=== PATIENT | male | born 1975 | race Caucasian/White ===

== ENCOUNTER 2019-05-25 16:20 | Emergency (ER) | payer BC ==
[2019-05-25 16:26] VITALS: BMI 38.3
--- NOTE | 2019-05-25 16:27 | PDOC ---
Rapid Medical Evaluation Chief Complaint: Chest Pain Time Seen by Provider: 05/25/19 16:26 Medical Evaluation: Allergies Allergy/AdvReac Type Severity Reaction Status Date / Time No Known Allergies Allergy Verified 02/22/16 10:53 Vital Signs Temp Pulse Resp BP Pulse Ox 98.5 F 96 H 16 147/93 97 05/25/19 16:24 05/25/19 16:24 05/25/19 16:24 05/25/19 16:24 05/25/19 16:24 05/25/19 16:26 I have performed a brief in-person evaluation of this patient. The patient presents with a chief complaint of: chest/back pain Pertinent physical exam findings:stable and in NAD, non-focal I have ordered the following:labs, ekg The patient will proceed to the ED for further evaluation.
[2019-05-25 17:15] LABS: BASO % 0.6 % (0-2.0); EOS % 1.7 % (0-4.5); HEMATOCRIT 45.9 % (35.4-49); HEMOGLOBIN 15.4 GM/dL (11.7-16.9); LYMPH % 26.8 % (8-40); MCH 28.7 pg (25.7-33.7); MCHC 33.5 g/dl (32.0-35.9); MEAN CELL VOLUME 85.8 fl (80-96); MEAN PLT VOLUME 7.7 fl (7.5-11.1); MONO % 6.3 % (3.8-10.2); NEUT % 64.6 % (42.8-82.8); PLATELET COUNT 258 K/MM3 (134-434); RBC 5.36 M/mm3 (4.00-5.60); RDW 13.6 % (11.9-15.9); WHITE BLOOD COUNT 11.5 K/mm3 (4.0-10.0)
[2019-05-25] MEDS ORDERED: KETOROLAC TROMETHAMINE 30 MG/1 ML VIAL IVPUSH ONE (17:25)
[2019-05-25] MEDS ORDERED: METHOCARBAMOL 500 MG TABLET PO ONE (17:25)
[2019-05-25] MEDS ORDERED: METHOCARBAMOL 500 MG TABLET ONE (17:28)
[2019-05-25] MEDS ORDERED: KETOROLAC TROMETHAMINE 30 MG/1 ML VIAL ONE (17:28)
--- NOTE | 2019-05-25 17:34 | PDOC ---
History of Present Illness - General Chief Complaint: Chest Pain Stated Complaint: CHEST PAIN Time Seen by Provider: 05/25/19 16:26 - History of Present Illness Initial Comments: 05/25/19 18:05 43yo M hx HTN, HLD, DM, smoking, obesity and vertigo presents from home c/o intermittent back and chest pain x3 days s/p heavy lifting. Pt was lifting a heavy refrigerator on Thursday and felt a twinge in his thoracic back that resolved. Then on thursday the back twinge returned and worsened and radiated around his left side to his anterior chest wall. Pt states it feels exactly like when he pulled a back muscle years ago. 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 Pain is more bothersome than painful, pressure type, intermittent, better when stretching or pressing back against villarreal or objects, better after shower, better after tylenol. Pt took toradol and robaxin here and feels much better, just a little pressure left. Denies fever, chills, fatigue, headache, dizziness , numbness/tingling, weakness, vision changes, shortness of breath, cough, palpitations, leg swelling, abdominal pain, blood in stool, diarrhea, constipation, nausea, vomiting, dysuria, hematuria, flank pain, saddle anesthesia, urinary or bowel incontinence, hx DVT/PE, calf tenderness, hemoptysis, trauma, recent surgery, recent travel, hormone or testosterone use, malignancy, prior [place], prior echo or stress test. Endorses FHx of early CVD ( mother heart attack at 42yo). Pt came in today because he was at arson investigator Dr Francis's office to pickling drum operator his aunt and pt told him about his symptoms and Dr Francis told him to come to the ED for evaluation. PCP - Amol James Delivery Room Clerk - Abimael Francis Past History - Past Medical History Allergies/Adverse Reactions: Allergies Allergy/AdvReac Type Severity Reaction Status Date / Time No Known Allergies Allergy Verified 05/25/19 16:27 Home Medications: Ambulatory Orders Losartan/Hydrochlorothiazide [Losartan-Hctz 100-25 mg Tab] 1 each PO DAILY 02/04 Meclizine HCl 25 mg PO PRN PRN 02/05/16 Metformin HCl [Glucophage] 1,000 mg PO BID 02/05/16 Pioglitazone HCl [Actos] 30 mg PO DAILY 02/05/16 Simvastatin 40 mg PO HS 02/05/16 COPD: No Diabetes: Yes HTN: Yes Hypercholesterolemia: Yes Other medical history: VERTIGO - Surgical History Orthopedic Surgery: Yes (knee - torn miniscus - left) - Immunization History Td Vaccination: Yes Immunization Up to Date: No - Suicide/Smoking/Psychosocial Hx Smoking Status: Yes Smoking History: Current every day smoker Years of Tobacco Use: 10 Have you smoked in the past 12 months: Yes Number of Cigarettes Smoked Daily: 20 Information on smoking cessation initiated: No 'Breaking Loose' booklet given: 02/05/16 Hx Alcohol Use: Yes (OCCASIONALLY) Drug/Substance Use Hx: No Substance Use Type: None Hx Substance Use Treatment: No Review of Systems - Review of Systems Comments:: 05/25/19 18:20 Constitutional: Negative for chills, fever, fatigue. HENT: Negative for sore throat, rhinorrhea, congestion. Eyes: Negative for visual disturbance. Respiratory: Negative for shortness of breath, cough, and wheezing. Cardiovascular: Positive for chest pain. Negative for palpitations, and leg swelling. Gastrointestinal: Negative for abdominal pain, blood in stool, constipation, diarrhea, nausea, and vomiting. Genitourinary: Negative for dysuria, flank pain, and hematuria. Musculoskeletal: Positive for back pain. Negative for myalgias and neck pain. Skin: Negative for rash. Neurological: Negative for light-headedness, dizziness, syncope, weakness, numbness and headaches. Psychiatric/Behavioral: Negative for behavioral problems and confusion. *Physical Exam - Vital Signs Last Vital Signs Temp Pulse Resp BP Pulse Ox 98.5 F 96 H 16 147/93 98 05/25/19 16:24 05/25/19 16:24 05/25/19 16:24 05/25/19 16:24 05/25/19 17:22 - Physical Exam Comments: 05/25/19 18:20 Gen: Alert, NAD, comfortable-appearing, obese HEENT: PERRL, EOMI, MMM, NCAT. No conjunctival pallor. Sclera are non-icteric. CV: No TTP. Regular rate and rhythm. No murmurs, rubs, or gallops. PULM: No resp distress. CTAB, no wheezes, rales, or rhonchi. ABD: soft, NT/ND, no rebound tenderness or guarding, no CVA tenderness. BACK: No TTP of c/t/l-spine. No step-offs or deformities. MSK: No bony deformities. 2+ pulses in all extremities. NEURO: AAOx3. PERRL. No gross CN deficits. Strength and sensation grossly intact throughout. EXTREMITIES: No cyanosis. No clubbing. No edema. No calf tenderness. PSYCH: Normal mood and thought pattern. SKIN: Warm and dry. Normal capillary refill. No rashes. No jaundice. Heart Score/ECG Review - ECG Impressions Comment:: 05/25/19 18:21 NSR, 85bpm, normal axis, no TWIs, no ST elevations or depressions ED Treatment Course - LABORATORY CBC & Chemistry Diagram: 05/25/19 16:49 05/25/19 16:49 Medical Decision Making - Medical Decision Making 05/25/19 17:58 43yo M hx HTN, HLD, DM, smoking, obesity and vertigo presents from home c/o intermittent back pain radiating to anterior chest wall x3 days s/p heavy lifting that pt states feels similar to pulled muscle in past. Hemodynamically stable, afebrile, neurologically intact, no TTP of chest or back, pain almost completely resolved s/p toradol and robaxin. Most likely musculoskeletal due to onset after heavy lifting, consistency of sx with prior muscle pull, and improvement of pain with stretching, anti-inflammatory med, and muscle relaxant. However, must consider and r/o more emergent etiologies. Back pain thoracic location, no TTP of c/t/l-spine, no saddle anesthesia or numbness/ tingling, no incontinence, atraumatic, afebrile - no s/s concerning for spinal fx, herniated disc, spinal abscess, or cauda equina - no further testing indicated. Chest pain anterior chest wall, not associated with nausea, numbness , diaphoresis, or SOB; no signs of ischemia on EKG, trop neg; low concern for ACS, HEART score 2 (due to RFs) - r/o ACS/[place] with troponin x2 and have pt follow -up tomorrow with arson investigator for further evaluation. Low concern for pulmonary etiology due to nonpleuritic nature of CP, lack of cough or SOB, and lungs CTAB, but r/o PNA, COPD exacerbation, and PTX with CXR and labs. Very low concern for PE due to lack of RFs, SOB, or tachycardia, Wells 0, Perc negative - no further testing indicated. Lack of tearing nature of chest/back pain, lack of hemodynamic instability, pulses equal bilaterally, and improvement with robaxin and toradol makes dissection of very low concern - no further testing indicated. Also consider infectious etiologies, anemia, or metabolic derangements - r/o with CMP and CBC. -Cardiac monitoring -EKG -CBC, CMP, Cardiac profile/trop x2 -CXR -Toradol and Robaxin given -Consult Dr Francis -Dispo: likely d/c home w/close cardiology f/u pending w/u 05/25/19 18:21 EKG 1629 reviewed: NSR, 85bpm, normal axis, no TWIs, no ST elevations or depressions Labs reviewed. Of note, WBC 11.5, gluc 192, CK 324, trop <0.02, CK-MB 3.2, CKI 0.9. Signed out to Dr Sharpe. *DC/Admit/Observation/Transfer Diagnosis at time of Disposition: Atypical chest pain - Discharge Dispostion Disposition: HOME Condition at time of disposition: Improved Decision to Admit order: No - Referrals Referrals: Amol James MD [Primary Care Provider] - Abimael Francis MD [Staff Physician] - - Patient Instructions Printed Discharge Instructions: DI for Atypical Chest Pain, DI for Thoracic Back Pain Additional Instructions: You have been seen in the Emergency Department for chest and back pain. Your EKG , chest X-ray, and labs, including Troponin (a heart enzyme), show no signs concerning for an emergent condition such as a heart attack or pneumonia at this time. Your pain was relieved by an anti-inflammatory medication and a muscle relaxant, so your pain is most likely a muscle strain. However, you have many risk factors for a heart condition and need further evaluation of your heart. Follow-up with your Delivery Room Clerk (heart doctor) Dr. Francis tomorrow. Also follow-up with your primary care doctor within 1 week. We did note an abnormality on your chest X-ray in the right lung which is unchanged from the prior X-ray. You said you are aware of it and have had it worked up in the past , but make sure you check in with your primary care doctor and let them know to make sure it doesn't need any further evaluation. Return to the ED immediately if you experience chest pain, difficulty breathing , dizziness, passing out, numbness or tingling, vomiting, or any other new or worsening symptom. - Post Discharge Activity
--- NOTE | 2019-05-25 17:36 | PDOC ---
Documentation entered by Nahun White SCRIBE, acting as scribe for Elizabeth Sharpe DO. Elizabeth Sharpe DO: This documentation has been prepared by the Christopher armas Xhesika, SCRIBE, under my direction and personally reviewed by me in its entirety. I confirm that the documentation accurately reflects all work, treatment, procedures, and medical decision making performed by me. Attending Attestation - Resident Resident Name: AbdelrahmanpoonamRosy - ED Attending Attestation I have performed the following: I have examined & evaluated the patient, The case was reviewed & discussed with the resident, I agree w/resident's findings & plan, Exceptions are as noted - HPI HPI: 05/25/19 17:45 The patient is a 43 year old male with a significant PMH of Anemia, HTN, DM, and HLD who presents to the emergency department for 3 days of back pain and chest wall pain. The patient states he lifted a heavy refrigerator on Thursday and felt a twitch in his back. Patient notes on Thursday he felt his back pain radiate to his chest wall that feels like a pulled muscle. Patient states he has been doing back presses against the wall/door for relief of symptoms, however, symptoms have not subsided. Today when he went to Dr. Licona office to lease picker his aunt, told him about his symptoms and was advised to come to the ED. The patient denies shortness of breath, headache and dizziness. Denies fever, chills, cough, nausea, vomiting, diarrhea and constipation. Denies dysuria, frequency, urgency and hematuria. Allergies: NKDA Social History: Current Everyday smoker PCP: Dr. Francis - Physicial Exam PE: 05/25/19 17:45 GENERAL: Awake, alert, and fully oriented, in no acute distress. (+) obese HEAD: No signs of trauma EYES: PERRLA, EOMI, sclera anicteric, conjunctiva clear ENT: Auricles normal inspection, hearing grossly normal, nares patent, oropharynx clear without exudates. Moist mucosa NECK: Normal ROM, supple, no lymphadenopathy, JVD, or masses LUNGS: Breath sounds equal, clear to auscultation bilaterally. No wheezes, and no crackles HEART: Regular rate and rhythm, normal S1 and S2, no murmurs, rubs or gallops CHEST WALL: (+) Anterior chest wall tenderness. ABDOMEN: Soft, nontender, normoactive bowel sounds. No guarding, no rebound. No masses BACK: (+) reproducible point tenderness to L c-spine and L paraspinal muscle T4- 5. (+) Tenderness to palpation around rib 5 and 6. EXTREMITIES: Normal range of motion, no edema. No clubbing or cyanosis. No cords, erythema, or tenderness NEUROLOGICAL: Cranial nerves II through XII grossly intact. Normal speech, normal gait SKIN: Warm, Dry, normal turgor, no rashes or lesions noted. - Medical Decision Making 05/25/19 17:31 I, Dr. Elizabeth Sharpe, DO, attest that this document has been prepared under my direction and personally reviewed by me in its entirety. I further attest, that it accurately reflects all work, treatment, procedures and medical decision -making performed by me. a/p: 43yo male with hx of smoking, htn, hld, smoking, obesity with back pain that radiates around to front -pain in back after lifting heavy refridgerator on thursday, pain radiates around to the front and feels similar to a pulled muscle he had in the past when playing softball -picking up his aunt at Dr. Francis office today and told him about the pain who sent him in for further eval -point tenderness to L paraspinal muscle in back around T4-5 and rib ttp around rib 5 and 6 and anterior chest wall pain -labs sent from [facility] are pending -nonacute ekg -will monitor on tele, however given symptoms low suspicion for acs -will peform [address] francis -will give muscle relaxer and toradol for pain -pt ambulatory in the ED -pain worse with upper back movement and better at rest -no assoc nausea, sob, pleuritic cp, diaphoresis 05/25/19 18:23 pain resolved 05/25/19 18:23 trop neg 05/25/19 19:05 cxr shows poss fibrosis vs atelectasis in RLL - unchanged from prior resident discussed xray findings with the patient reviewed note from Dr. Francis if 2nd trop neg stable for dc to home and follow up with him as outpt 05/25/19 19:42 pt states he knows about the abnl cxr findings 05/25/19 20:09 repeat trop neg stable for dc to home and follow up with dr. francis as outpt *DC/Admit/Observation/Transfer Diagnosis at time of Disposition: Atypical chest pain - Discharge Dispostion Disposition: HOME Condition at time of disposition: Improved Decision to Admit order: No - Prescriptions Prescriptions: Methocarbamol [Robaxin -] 500 mg PO TID PRN #10 tablet PRN Reason: Muscle Spasms - Referrals Referrals: Amol James MD [Primary Care Provider] - Abimael Francis MD [Staff Physician] - - Patient Instructions Printed Discharge Instructions: DI for Atypical Chest Pain, DI for Thoracic Back Pain Additional Instructions: You have been seen in the Emergency Department for chest and back pain. Your EKG , chest X-ray, and labs, including Troponin (a heart enzyme), show no signs concerning for an emergent condition such as a heart attack or pneumonia at this time. Your pain was relieved by an anti-inflammatory medication and a muscle relaxant, so your pain is most likely a muscle strain. However, you have many risk factors for a heart condition and need further evaluation of your heart. Follow-up with your [facility] (heart doctor) Dr. Francis tomorrow. Also follow-up with your primary care doctor within 1 week. We did note an abnormality on your chest X-ray in the right lung which is unchanged from the prior X-ray. You said you are aware of it and have had it worked up in the past , but make sure you check in with your primary care doctor and let them know to make sure it doesn't need any further evaluation. Return to the ED immediately if you experience chest pain, difficulty breathing , dizziness, passing out, numbness or tingling, vomiting, or any other new or worsening symptom. - Post Discharge Activity Heart Score/ECG Review - ECG Intrepretation Comment:: 05/25/19 17:36 sinus at 85, nl axis, nl interval, no acute st/t wave findings
[2019-05-25 17:42] LABS: ALBUMIN 3.9 g/dl (3.4-5.0); ALK PHOS 79 U/L (45-117); ANION GAP 13 MMOL/L (8-16); BILIRUBIN,TOTAL 0.5 mg/dL (0.2-1); BLOOD UREA NITROGEN 14.2 mg/dL (7-18); CALCIUM 9.4 mg/dL (8.5-10.1); CHLORIDE 99 mmol/L (98-107); CO2 28 mmol/L (21-32); GLUCOSE,RANDOM 192 mg/dL (74-106); POTASSIUM 3.8 mmol/L (3.5-5.1); SGOT/AST 20 U/L (15-37); SGPT/ALT 37 U/L (13-61); SODIUM 140 mmol/L (136-145); TOT PROT 7.3 g/dl (6.4-8.2)
[2019-05-25 17:44] LABS: INR 1.03 (0.83-1.09); PROTHROMBIN TIME (PATIENT) 12.1 SEC (9.7-13.0)
[2019-05-25 17:46] LABS: ACTIVATED PTT 36.5 SECONDS (25.2-36.5)
--- NOTE | 2019-05-25 18:44 | CON.CARD ---
Consult Consult Specialty:: cardiology Reason for Consultation:: chest pain; multiple CAD risks - History of Present Illness Chief Complaint: Pt A&OX3; he remarked several times to his aunt, while in the office, that he has been having chest discomfort "for a long time", though worse for the past few days whle lifting heavy/bulky objects at work. History of Present Illness: 43 yr old white man with PMHx DM, HTN, hyperlipidemia, long-term dicgarette smoker, obesity, was picking up his aunt at our office when he complained of left anterior wall chest discomfort (sharp, intense, at times pressure-like; associated with back pain; may last seconds to several minutes) that has been occurring off and on for a few days; it is moderate in severity. 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 +familiy hx: father with CHF, AF. PCP: Dr. James - History Source History Provided By: Patient, Family Member, Medical Record Limitations to Obtaining History: No Limitations - Past Medical History Cardio/Vascular: Yes: HTN, Hyperlipdemia Pulmonary: Yes: Sleep Apnea (to rule out), Other (long-term cigarettes) - Alcohol/Substance Use Hx Alcohol Use: Yes (OCCASIONALLY) - Smoking History Smoking history: Current every day smoker Have you smoked in the past 12 months: Yes Aproximately how many cigarettes per day: 20 - Social History [facility] of : [facility] Home Medications - Allergies Allergies/Adverse Reactions: Allergies Allergy/AdvReac Type Severity Reaction Status Date / Time No Known Allergies Allergy Verified 05/25/19 16:27 - Home Medications Home Medications: Ambulatory Orders Losartan/Hydrochlorothiazide [Losartan-Hctz 100-25 mg Tab] 1 each PO DAILY 02/04 Meclizine HCl 25 mg PO PRN PRN 02/05/16 Metformin HCl [Glucophage] 1,000 mg PO BID 02/05/16 Pioglitazone HCl [Actos] 30 mg PO DAILY 02/05/16 Simvastatin 40 mg PO HS 02/05/16 Family Disease History - Family Disease History Family Disease History: Diabetes: Father (diastolic CHF; COPD; AF), Heart Disease: Father - Risk Factors Known Risk Factors: Yes: Age, Diabetes Mellitus, Family History, Gender, Hypercholesterolemia, Hypertension, Smoking, Other (obesity) Vital Signs: Vital Signs Temperature 98.5 F 05/25/19 16:24 Pulse Rate 69 05/25/19 18:35 Respiratory Rate 18 05/25/19 18:35 Blood Pressure 130/75 05/25/19 18:35 O2 Sat by Pulse Oximetry (%) 97 05/25/19 18:35 Constitutional: Yes: Anxious, Obese Eyes: Yes: WNL HENT: Yes: WNL Neck: Yes: WNL Respiratory: Yes: WNL Gastrointestinal: Yes: Abdomen, Obese Renal/: No: Anuria Cardiovascular: Yes: Gallop (S4) JVD: No Carotid Bruit: No Heart Sounds: Yes: S1, S2, S4 Murmur: Yes: Systolic Murmur, Grade 1 Musculoskeletal: Yes: WNL Extremities: Yes: WNL Edema: Yes Edema: LLE: Trace, RLE: Trace Peripheral Pulses WNL: Yes Integumentary: Yes: WNL Neurological: Yes: WNL Psychiatric: Yes: Alert, Oriented - Other Data Labs, Other Data: CBC, BMP 05/25/19 16:49 05/25/19 16:49 INR, PTT INR 1.03 (0.83-1.09) 05/25/19 16:49 Troponin, BNP 05/25/19 16:49 Troponin I < 0.02 Troponin, BNP 05/25/19 16:49 Troponin I < 0.02 Abnormal Lab Results 05/25/19 05/25/19 16:49 16:49 WBC 11.5 H Random Glucose 192 H Creatine Kinase 324 H Imaging - Results EKG: Image Reviewed Problem List - Problems (1) [place] cardiac risk >20% in next 10 years Code(s): Z91.89 - H PERSONAL RISK FACTORS, NOT ELSEWHERE CLASSIFIED (2) Diabetes Code(s): E11.9 - TYPE 2 DIABETES MELLITUS WITHOUT COMPLICATIONS (3) HTN (hypertension) Code(s): I10 - ESSENTIAL (PRIMARY) HYPERTENSION (4) Hyperlipidemia Code(s): E78.5 - HYPERLIPIDEMIA, UNSPECIFIED (5) Obesity (BMI 30-39.9) Code(s): E66.9 - OBESITY, UNSPECIFIED (6) Atypical chest pain Assessment/Plan: F/u EKG Serial TNIs: if negative x 2 (and not rising appreciably), can consider f/u as outpatient for stress MIBI. Code(s): R07.89 - OTHER CHEST PAIN
[2019-05-25 19:41] LABS: CHOLESTEROL 201 mg/dL (50-200); HDL CHOLESTEROL 33 mg/dL (40-60); TRIGLYCERIDES 162 mg/dL (0-150)
[2019-05-25 20:35] VITALS: BP 131/77; PULSE 85; TEMP 97.7
--- NOTE | 2019-05-26 12:26 | EKG ---
Test Reason : Blood Pressure : / mmHG Vent. Rate : 085 BPM Atrial Rate : 085 BPM P-R Int : 172 ms QRS Dur : 086 ms QT Int : 384 ms P-R-T Axes : 052 027 041 degrees QTc Int : 456 ms NORMAL SINUS RHYTHM NORMAL ECG WHEN COMPARED WITH ECG OF 29-JAN-2015 08:55, NO SIGNIFICANT CHANGE WAS FOUND Confirmed by SUHAIL CROOK MD ([id number]) on 05/26/2019 12:25:40 PM Referred By: Confirmed By:SUHAIL CROOK MD
== END 2019-05-25 20:35 | disposition home or self-care (01) ==
LOC: JER 16:20
PROC: 3E0333Z Introduction of Anti-inflammatory into Peripheral Vein, Percutaneous Approach (ICD-10-PCS; principal; 2019-05-25)
DX: R07.9 Chest pain, unspecified (principal); M54.6 Pain in thoracic spine; I10 Essential (primary) hypertension; E78.5 Hyperlipidemia, unspecified; E11.9 Type 2 diabetes mellitus without complications; Z79.84 Long term (current) use of oral hypoglycemic drugs; E66.9 Obesity, unspecified; Z68.38 Body mass index [BMI] 38.0-38.9, adult; Z91.89 Other specified personal risk factors, not elsewhere classified
CPT/HCPCS: 36415; 71045-TC-FY; 80053; 80061; 82550; 82553; 83721; 84484; 85025; 85610; 85730; 93005; 93010; 99284-25

== ENCOUNTER 2020-05-30 07:24 | Day surgery (SDC) | payer BC ==
[2020-05-22 14:09] VITALS: BMI 38.6
[2020-05-30] MEDS ORDERED: LIDOCAINE HCL 2% (20ML MULTI-DOSE VIAL) ONE (08:35)
[2020-05-30] MEDS ORDERED: MIDAZOLAM HCL 2 MG/2 ML SINGLE DOSE VIAL ONE (08:43)
[2020-05-30] MEDS ORDERED: PROPOFOL 20 ML ONE (08:43)
[2020-05-30] MEDS ORDERED: LIDOCAINE HCL 2% (50ML VIAL) NR ONE (08:49)
[2020-05-30 09:29] VITALS: TEMP 97.5
--- NOTE | 2020-05-30 09:31 | OP ---
DATE OF OPERATION: 05/30/2020 PREOPERATIVE DIAGNOSIS: Left carpal tunnel syndrome. POSTOPERATIVE DIAGNOSIS: Left carpal tunnel syndrome. OPERATIVE PROCEDURE: Left carpal tunnel release. ANESTHESIA: Local with sedation. COMPLICATIONS: None. ESTIMATED BLOOD LOSS: Minimal. INDICATIONS FOR PROCEDURE: The patient is a 44-year-old male with the above finding indicated for operative treatment. Risks, benefits and alternatives were discussed with him at length and proper informed consent was obtained. PROCEDURE: After proper identification of patient and correct operative site, patient was brought to the operating room, placed supine on the operating table. All bony prominences were well padded. Sedation and local anesthesia were given. Left upper extremity was prepped and draped in the usual sterile fashion. Well-padded tourniquet was placed over a sterile prep. Esmarch bandage was used to exsanguinate the left upper extremity. Tourniquet was inflated to 250 mmHg. Longitudinal incision was made in the proximal aspect of the palm. Incision was taken sharply through the skin with blunt and sharp dissection through the subcutaneous tissues. Palmar fascia was divided longitudinally. Transcarpal ligament was divided longitudinally along with the distal 4 cm of the antebrachial fascia under direct visualization with loupe magnification. This provided complete release of the median nerve at the wrist. Wound was irrigated and repaired with 4-0 nylon sutures. Sterile dressings were applied. The patient was reversed from anesthesia, brought to recovery in stable condition. He tolerated the procedure well. VARSHA SYED M.D. [id number]
[2020-05-30 09:52] VITALS: BP 121/70; PULSE 59
== END 2020-05-30 10:00 | disposition home or self-care (01) ==
LOC: FASU 07:24
PROVIDERS: ATTEND Orthopaedic Surgery Hand Surgery
PROC: 01N50ZZ Release Median Nerve, Open Approach (ICD-10-PCS; principal; 2020-05-30 08:55)
DX: G56.02 Carpal tunnel syndrome, left upper limb (principal)
CPT/HCPCS: 82962